=== PATIENT | male | born 1950 | race Caucasian/White ===

== ENCOUNTER 2019-04-19 08:14 | Day surgery (SDC) | payer MEDICARE ==
[2019-04-18 10:33] LABS: BASOPHILS # (AUTO) 0.1 X10'3 (0-0.2); BASOPHILS % (AUTO) 1.4 % (0-1); EOSINOPHILS # (AUTO) 0.1 X10'3 (0-0.9); EOSINOPHILS % (AUTO) 0.9 % (0-6); LYMPHOCYTES # (AUTO) 1.4 X10'3 (1.1-4.8); LYMPHOCYTES % (AUTO) 23.1 % (21-51); MEAN CORPUSCULAR HEMOGLOBIN 29.5 PG (27.0-31.0); MEAN CORPUSCULAR HGB CONC 34.2 g/dL (33.0-36.5); MEAN CORPUSCULAR VOLUME 86.2 FL (78-98); MEAN PLATELET VOLUME 8.3 FL (7.4-10.4); MONOCYTES # (AUTO) 0.5 X10'3 (0-0.9); MONOCYTES % (AUTO) 9.1 % (2-12); NEUTROPHILS # (AUTO) 3.8 X10'3 (1.8-7.7); NEUTROPHILS % (AUTO) 65.5 % (42-75); PRE OP HEMATOCRIT 47.3 % (42.0-52.0); PRE OP HEMOGLOBIN 16.2 g/dL (14.0-17.9); PRE OP PLATELET COUNT 261 X10'3 (140-440); RED BLOOD COUNT 5.49 X10'6 (4.70-6.10); RED CELL DISTRIBUTION WIDTH 12.8 % (11.5-14.5)
[2019-04-18 10:35] LABS: CLARITY,URINE CLEAR (Clear); COLOR,URINE YELLOW (Yellow); GLUCOSE, URINE NEGATIVE (Neg); KETONES,URINE NEGATIVE (Neg); LEUKOCYTE ESTERASE ,URINE NEGATIVE (Neg); NITRITES, URINE NEGATIVE (Neg); OCCULT BLOOD,URINE NEGATIVE (Neg); PROTEIN,URINE NEGATIVE (Neg); UROBILINOGEN,URINE 0.2 E.U/dL (0.2-1.0)
[2019-04-18 10:36] LABS: UA COLLECTION TYPE CLN CATCH MIDSTREAM
[2019-04-18 10:44] LABS: ALBUMIN 4.1 G/DL (3.4-5.0); ALBUMIN/GLOBULIN RATIO 1.3 (1.1-1.5); ALKALINE PHOSPHATASE 66 IU/L (46-116); BLOOD UREA NITROGEN 11 MG/DL (7-18); BUN/CREATININE RATIO 12.1 (5.4-32.0); CALCIUM 8.5 MG/DL (8.5-10.1); CHLORIDE 103 MMOL/L (99-107); CREATININE 0.91 MG/DL (0.60-1.10); PRE OP ALT 18 U/L (30-65); PRE OP ANION GAP 5 (8-16); PRE OP AST 13 U/L (10-37); PRE OP BILIRUB, TOTAL 0.8 MG/DL (0.0-1.0); PRE OP GLUCOSE 89 MG/DL (70-104); PRE OP SODIUM 139 MMOL/L (135-145); TOTAL CARBON DIOXIDE 30.9 MMOL/L (24-32); TOTAL PROTEIN 7.3 G/DL (6.4-8.2); eGFR 83 ML/MIN
[~2019-04-19] VITALS: Ht 185.4 cm; Wt 76.6 kg
[2019-04-19] VITALS (8 sets, daily range): BP systolic 120–151; BP diastolic 57–92
[~2019-04-19 08:14] MED LIST: MAGN400O6 PO
[2019-04-19] MEDS ORDERED: ceFAZolin 2gm in dextrose, iso 100 ML IV ONE (09:15)
[2019-04-19] MEDS ORDERED: ringers solution, lacted 1,000 ML IV SCH ×2 (09:15→13:31)
[2019-04-19] MEDS ORDERED: famotidine 20mg tablet PO ONE (09:15)
[2019-04-19] MEDS ORDERED: midazolam 2 mg/2 ml injection ONE (11:36)
[2019-04-19] MEDS ORDERED: fentaNYL/PF 50MCG/1 ML 2ML syringe ONE ×2 (11:36→13:12)
[2019-04-19] MEDS ORDERED: rocuronium 10mg/ml inj IV ONE (11:38)
[2019-04-19] MEDS ORDERED: propofol inj 20 ML IV ONE (11:38)
[2019-04-19] MEDS ORDERED: LIDOcaine 2% (20mg/ml) 5ml vial ONE (11:38)
[2019-04-19] MEDS ORDERED: BUPIVAcaine/PF 2.5mg/ml (0.25%) 10ml vial ONE (11:43)
[2019-04-19] MEDS ORDERED: ceFAZolin 1000mg inj ONE (11:50)
[2019-04-19] MEDS ORDERED: ROPIVAcaine 0.5% (5mg/ml) 30ml vial ONE (12:06)
[2019-04-19] MEDS ORDERED: ePHEDrine 50MG/ML INJ. ONE (12:11)
[2019-04-19] MEDS ORDERED: sevoflurane 250ml liquid IH ONE (12:11)
[2019-04-19] MEDS ORDERED: ondansetron/PF 4mg/2ml inj ONE (13:11)
[2019-04-19] MEDS ORDERED: neostigmine methylsulfate 1 MG/ML 10ml vial ONE (13:11)
[2019-04-19] MEDS ORDERED: dexamethasone sod phosphate 4mg/ml inj. ONE (13:11)
[2019-04-19] MEDS ORDERED: glycopyrrolate 0.2mg/ml inj ONE (13:11)
--- NOTE | 2019-04-19 13:20 | NUR ---
Received from OR via [facility] , accompanied by Anesthesiologist LORETTA and report given by Anesthesiolgist. PATIENT WITH 20G PIV IN RIGHT UE RUNNING LR AT 100. DENIES PAIN AT THIS TIME. 2MIDLINE ABDOMINAL BANDAIDS PRESENT WITH NO DRAINAGE PRESENT. VSS. Addendum: 04/19/19 at 1328 by Christian Gannon RN, RN Amended: Links added.
--- NOTE | 2019-04-19 13:20 | NUR ---
Received from OR via [g PCS.BED], accompanied by Anesthesiologist [] and report given by Anesthesiolgist. VSS AT THIS TIME. 20G PIV IN RIGHT UE RUNNING LR AT 100. 2 ABDOMINAL BANDAIDS PRESENT WITH NO DRAINAGE Addendum: 04/19/19 at 1335 by Christian Gannon RN, RN Amended: Links added.
[2019-04-19] MEDS ORDERED: meperidine/PF 25mg/ml syringe IV PRN ×3 (13:35)
[2019-04-19] MEDS ORDERED: ondansetron/PF 4mg/2ml inj IV PRN (13:35)
[2019-04-19] MEDS ORDERED: morphine 4 MG/ML inj SYRINge IV PRN ×2 (13:35)
[2019-04-19] MEDS ORDERED: proCHLORperazine 10 MG/2 ml inj IV PRN (13:35)
--- NOTE | 2019-04-19 14:20 | NUR ---
RECEIVED REPORT FROM CRISTAL SNYDER IN PACU, PATIENT ARRIVED TO 243 VIA GURNEY. VSS CHARTED. PATIENT NEEDS TO VOID BEFORE DISCHARGE. WILL CONTINUE OT MONITOR.
--- NOTE | 2019-04-19 14:20 | NUR ---
Report called to receiving nurse. Transferred via GURNEY WITH 2 BAGS OF Belongings . REPORT GIVEN TO Ethan CASILLAS RN ON PAS UNIT. Special Issues communicated to receiving nurse.VSS, IV INTACT. DENIES PAIN. DRESSING TO ABDOMEN ARE CDI. Addendum: 04/19/19 at 1426 by Christian Gannon RN, RN Amended: Links added.
--- NOTE | 2019-04-19 14:56 | NUR ---
DISCHARGE TO PERSONAL VEHICLE WITH ALL PERSONAL BELONGINGS ACCOMPANIED BY STAFF AND FAMILY. PIV DC'D CATH TIP INTACT.
== END 2019-04-19 14:56 | disposition home or self-care (01) ==
LOC: PAS 08:14
PROVIDERS: ATTEND Surgery
DX: K40.90 Unilateral inguinal hernia, without obstruction or gangrene, not specified as recurrent (principal); K40.91 Unilateral inguinal hernia, without obstruction or gangrene, recurrent; Z98.890 Other specified postprocedural states; F17.210 Nicotine dependence, cigarettes, uncomplicated; Z98.49 Cataract extraction status, unspecified eye
CPT/HCPCS: 36415; 49650; 49651; 80053; 81003; 82948; 85025; A6258; C1713; C1781; J0690; J1100; J2001; J2250; J2405; J2704; J2710; J3010; J3490; A4315; J2795; J7120